=== PATIENT | male | born 1950 | race Caucasian/White ===

== ENCOUNTER 2017-01-25 13:33 | Outpatient (CLI) | payer MEDICARE, BC ==
--- OUTSIDE RECORDS SUMMARY | 2017-01-25 13:36 | XMS | Clinical Summary ---
:1950 Author Organization [facility] Address [address] [place] [address] Phone Care Team Providers Name Role Phone Derrick Solares Primary Care Provider tel Allergies No Known Allergies Current Medications Prescription Sig. Disp. Refills Start Date End Date Status HYDROcodone-acetaminophen TK 1 T PO Q 4 H 0 11/11/2016 Active (NORCO) 10-325 mg per tablet PRF PAIN. MAX 6 PER DAY HYDROcodone-acetaminophen TK 1 T PO Q 4 0 12/31/2016 Active (NORCO) 7.5-325 mg per tablet TO 6 H PRN montelukast (SINGULAIR) 10 mg 1 12/23/2016 Active tablet tamsulosin (FLOMAX) 0.4 mg TK 1 C PO QD 1 12/19/2016 Active capsule,extended release 24hr traMADol (ULTRAM) 50 mg TK 1 T PO Q 4 0 12/17/2016 Active tablet TO 6 H PRF PAIN promethazine (PHENERGAN) 25 TK 1 T PO Q 4 H 1 12/10/2016 Active MG tablet PRN LORAZepam (ATIVAN) 1 MG TK 1 T PO TID 3 11/24/2016 Active tablet PRN lisinopril-hydrochlorothiazid TK 1 T PO QD 0 11/28/2016 Active e (PRINZIDE,ZESTORETIC) 20-12.5 mg per tablet hydroCHLOROthiazide Take 20 mg by Active (HYDRODIURIL) 25 MG tablet mouth daily. aspirin (ECOTRIN) 81 MG Take 81 mg by Active enteric coated tablet mouth daily. Active Problems Not on file Family History Medical History Relation Name Comments Cancer Other CORONARY ARTERY DISEASE/HIGH BLOOD PRESSURE/DIABETES/PROSTATE CANCER Relation Name Status Comments Other Other Social History Tobacco Use Types Packs/Day Years Used Date Never Smoker Smokeless Tobacco: Never Used Tobacco Cessation:Counseling Given: No Alcohol Use Drinks/Week oz/Week Comments Yes LESS THAN 6 DRINKS Sex Assigned at Date Recorded Not on file Last Filed Vital Signs Vital Sign Reading Time Taken Blood Pressure - - Pulse - - Temperature - - Respiratory Rate - - Oxygen Saturation - - Inhaled Oxygen Concentration - - Weight 109 kg (240 lb) 01/22/2017 4:25 PM CDT Height 177.8 cm (5' 10") 01/22/2017 4:25 PM CDT Body Mass Index 34.44 01/22/2017 4:25 PM CDT Plan of Treatment Date Type Specialty Care Team Description 01/27/2017 Office Visit Neurosurgery Kenyon Mancera MD [address] [id number] Results Not on filefrom Last 3 Months Insurance Payer Benefit Plan / Group Subscriber ID Type Phone Address MEDICARE MEDICARE PART A AND B [id number] Medicare [place], [place] BCBS BCBS PAR/TRAD PLAN [id number] Indemnity Home: [id number] [phone] [address]
--- NOTE | 2017-01-25 15:08 | RAD ---
5 VIEWS CERVICAL SPINE: Date: 01/25/17 HISTORY: Cervical spine fracture. Follow-up C1 fracture. Patient hit head on back of trailer. Patient in cerv ical collar. COMPARISON: 12/07/16. FINDINGS: Cervical collar is noted in place. The previously noted halo device is no longer present. C1 to the cervicothoracic junction is seen on the lateral view. There are mild multilevel degenerative changes again present. There is stable slight anterolisthesis of C4 on C5. There is again displacement of t he lateral masses of the C1 vertebral body, less well delineated on the left, but the degree of disp lacement on the right is stable. The odontoid is again partially obscured. There has been no other i nterval change from the prior exam. IMPRESSION: Stable appearance and displacement of the fracture of the C1 vertebral body. POS: [facility]
== END 2017-01-25 13:34 | disposition home or self-care (01) ==
LOC: TBSIIMAG 13:33
PROVIDERS: ATTEND Surgery
DX: S12.9XXA Fracture of neck, unspecified, initial encounter (principal); S12.000A Unspecified displaced fracture of first cervical vertebra, initial encounter for closed fracture
CPT/HCPCS: 72040

== ENCOUNTER 2017-06-09 09:53 | Outpatient (CLI) | payer MEDICARE, BC ==
[2017-06-09 10:19] LABS: PTT 32.4 SEC (22.9-36.1); Prothrombin Time 12.8 SEC (12.0-14.7)
[2017-06-09 10:21] LABS: Bilirubin Negative (Negative); Blood, Urine Negative (Negative); Clarity Clear (Clear); Glucose, Urine (Dipstick) Negative (Negative); Leukocyte Negative (Negative); Nitrite Negative (Negative); Protein, Urine (Dipstick) Negative (Neg-Trace); Urobilinogen 0.2 mg/dL (0.2-1.0); pH, Urine 5.5 (5.0-9.0)
[2017-06-09 10:40] LABS: ALT (SGPT) 33 U/L (8-55); AST (SGOT) 39 U/L (5-34); Albumin 4.7 g/dL (3.4-4.8); Alkaline Phosphatase 56 U/L (40-150); Anion Gap 13 mmol/L (10-20); BUN (Urea Nitrogen) 20 mg/dL (8.4-25.7); Bilirubin, Total 0.9 mg/dL (0.2-1.2); Calc. Creatinine Clearance 0 mL/min (70-130); Calcium 9.7 mg/dL (7.8-10.44); Carbon Dioxide 28 mmol/L (23-31); Chloride 103 mmol/L (98-107); Estimated GFR-MDRD 71; Globulin 2.9 g/dL (2.4-3.5); Glucose 105 mg/dL (80-115); Protein, Total 7.6 g/dL (5.8-8.1); Sodium 140 mmol/L (136-145)
--- NOTE | 2017-06-09 10:46 | RAD ---
CHEST TWO VIEWS: History: Pre op. FINDINGS: Heart size within normal limits. There are arthrosclerotic changes of the aorta. Lungs are clear of i nfiltrates. There are arthritic changes of the spine. IMPRESSION: No active intrathoracic disease. POS: [facility]
[2017-06-09 10:56] LABS: Specific Gravity, Urine 1.007 (1.002-1.036)
[2017-06-09 11:10] LABS: Bacteria/HPF None Seen HPF (None Seen); RBC/HPF None Seen HPF (0-3); Squamous Epithelial None Seen HPF (0-3); WBC/HPF None Seen HPF (0-3)
[2017-06-09 11:16] LABS: #Basophils 0.1 thou/uL (0.0-0.2); #Eosinphils 0.2 thou/uL (0.0-0.7); #Lymphocytes 2.2 thou/uL (1.20-3.40); #Monocytes 0.9 thou/uL (0.11-0.59); #Neutrophils 5.8 thou/uL (1.40-6.50); %Basophils 0.9 % (0.0-1.0); %Eosinophils 2.4 % (0.0-10.0); %Lymphocytes 23.8 % (21.0-51.0); %Monocytes 9.9 % (0.0-10.0); Hemoglobin 13.6 g/dL (14.0-18.0); Mean Corpuscular HGB CONC 31.9 g/dL (32.0-36.0); Mean Corpuscular Hemoglobin 27.2 pg (27.0-31.0); Mean Corpuscular Volume 85.3 fl (80.0-94.0); Mean Platelet Volume 7.2 fL (7.4-10.4); Platelet Count 199 thou/uL (130-400); RBC Distribution Width 13.2 % (11.5-14.5); White Blood Cell (WBC) Count 9.2 thou/uL (4.8-10.8)
== END 2017-06-09 09:54 | disposition home or self-care (01) ==
LOC: SCSRAD 09:53
PROVIDERS: ATTEND Family Medicine
DX: Z51.81 Encounter for therapeutic drug level monitoring (principal); I25.10 Atherosclerotic heart disease of native coronary artery without angina pectoris; D68.9 Coagulation defect, unspecified; Z79.01 Long term (current) use of anticoagulants
CPT/HCPCS: 36415; 71046; 80053; 81001; 85025; 85610; 85730

== ENCOUNTER 2019-04-24 10:20 | Outpatient (CLI) | payer MEDICARE, BC ==
--- NOTE | 2019-04-24 10:50 | ULT ---
EXAM: Right lower extremity venous Doppler HISTORY: Right lower extremity pain. Recent injury to right calf. FINDINGS: Grayscale, color-flow, Doppler evaluation, spectral analysis of the right lower extremity venous stru ctures is performed with 2-D imaging. The right common femoral, superficial femoral, popliteal, posterior tibial, proximal greater saphenous and profunda femoral veins are imaged. There is normal luminal compressibility, flow, and augmentation in the visualized deep venous structu res of the right lower extremity. There is an oval-shaped heterogeneous collection seen in the right calf which does not demonstrate fl ow on color flow evaluation. This heterogeneous collection measures 3.9 cm x 1.2 cm x 3.1 cm. IMPRESSION: 1. No evidence of a deep vein thrombosis in the visualized deep venous structures right lower extremi ty. 2. Heterogeneous collection right calf which patient reports is in region of prior injury. This likel y represents a hematoma. However, infection cannot be entirely excluded based on sonographic evaluation. Follow-up imaging is advised in 3 months to ensure resolution of presumed hematoma if the re are no signs or symptoms to suggest infection.
== END 2019-04-24 10:21 | disposition home or self-care (01) ==
LOC: SCSULT 10:20
PROVIDERS: ATTEND Family Medicine
DX: M79.604 Pain in right leg (principal)